=== PATIENT | male | born 1985 | race Caucasian/White ===

== ENCOUNTER 2017-01-25 15:35 | Emergency (ER) | payer BC ==
[2017-01-25] MEDS ORDERED: CEPHALEXIN 500 MG CAPSULE PO ONE (15:49)
[2017-01-25] MEDS ORDERED: DIPH/PERTUSS(ACELL)/TETANUS VAC/PF 0.5 ML SYR (>=10YO) IM ONE (15:49)
--- NOTE | 2017-01-25 15:56 | ER Document Report ---
ED Wound - General Chief Complaint: Laceration Stated Complaint: LEG INJURY Time Seen by Provider: 01/25/17 15:49 Mode of Arrival: Ambulatory Information source: Patient TRAVEL OUTSIDE OF THE [place] IN LAST 30 DAYS: No - HPI Patient complains to provider of: Laceration Occurred: Just prior to arrival Onset/Duration: Sudden Quality of pain: Sharp Severity: Moderate Context: Injury Skin Temperature: Warm Skin Color: Normal Capillary refill: < 3 seconds Sensations intact: Yes Distal pulses present: Yes Associated Symptoms: None Notes: WAS USING CHAIN SAW TO FELL SMALL TREES, SAW "KICKED BACK," LACERATING PATIENT' S LEFT THIGH JUST ABOVE KNEE. - Related Data Allergies/Adverse Reactions: No Known Allergies Allergy (Verified 01/25/17 15:38) Past Medical History - General Information source: Patient - Social History Smoking Status: Never Smoker Cigarette use (# per day): No Chew tobacco use (# tins/day): No Frequency of alcohol use: Occasional Drug Abuse: None Lives with: Spouse/Significant other Family History: Reviewed & Not Pertinent Patient has suicidal ideation: No Patient has homicidal ideation: No - Past Medical History Cardiac Medical History: Reports: None Pulmonary Medical History: Reports: None EENT Medical History: Reports: None Neurological Medical History: Reports: None Endocrine Medical History: Reports: None Renal/ Medical History: Reports: None. Denies: Hx Peritoneal Dialysis Malignancy Medical History: Reports None GI Medical History: Reports: None Musculoskeltal Medical History: Reports None Skin Medical History: Reports None Psychiatric Medical History: Reports: None Past Surgical History: Reports: Hx Tonsillectomy - Immunizations Hx Diphtheria, Pertussis, Tetanus Vaccination: No Review of Systems - Review of Systems Constitutional: No symptoms reported EENT: No symptoms reported Cardiovascular: No symptoms reported Respiratory: No symptoms reported Gastrointestinal: No symptoms reported Genitourinary: No symptoms reported Musculoskeletal: No symptoms reported Skin: See HPI Neurological/Psychological: No symptoms reported Physical Exam - Vital signs Vitals: Temp Pulse Resp BP Pulse Ox 98.7 F 118 H 18 119/78 97 01/25/17 15:38 01/25/17 15:38 01/25/17 15:38 01/25/17 15:38 01/25/17 15:38 Interpretation: Tachycardic - General General appearance: Appears well, Alert In distress: None - HEENT Head: Normocephalic Eyes: Normal Conjunctiva: Normal Ears: Normal Nasal: Normal Mouth/Lips: Normal Mucous membranes: Normal - Respiratory Respiratory status: No respiratory distress - Cardiovascular Rhythm: Regular - Abdominal Inspection: Normal Distension: No distension - Extremities General upper extremity: Normal inspection General lower extremity: No: Normal inspection - L. THIGH (SEE BELOW) - Neurological Neuro grossly intact: Yes Cognition: Normal Orientation: AAOx4 - Psychological Associated symptoms: Normal affect, Normal mood - Skin Skin Temperature: Warm Skin Moisture: Dry Skin Color: Normal Skin Turgor: Elastic Skin irregularity: Laceration - SEE GRAPHIC Course - Vital Signs Vital signs: Temp Pulse Resp BP Pulse Ox 98.7 F 118 H 18 119/78 97 01/25/17 15:38 01/25/17 15:38 01/25/17 15:38 01/25/17 15:38 01/25/17 15:38 Procedures - Laceration/Wound Repair Left Thigh Time completed: 17:15 Wound length (cm): 6.3 Wound's Depth, Shape: Linear. No: Into muscle Laceration pre-procedure: Sterile PPE donned, Betadine prep applied, Sterile drapes applied Anesthetic type: 2% Lidocaine Volume Anesthetic (mLs): 16 Wound explored: No foreign body removed, Contaminated Irrigated w/ Saline (mLs): 80 Wound Debrided: Moderate Wound Repaired With: Sutures Suture Size/Type: 3:0, Nylon Number of Sutures: 10 - 2 SIMPLE, 4 VERT MATTRESS Layer Closure?: No Post-procedure wound care: Sterile dressing applied Post-procedure NV exam normal: Yes Complications: No Adult Front & Back picture: 1 - 6.3 cm LAC., SUTURED Discharge - Discharge Clinical Impression: Laceration Condition: Stable Disposition: HOME, SELF-CARE Instructions: Laceration Care ([facility]), Prophylactic Antibiotic ([facility]), Soap Cleansing ([facility]), Tetanus Immunization Given ([facility]) Additional Instructions: KEEP WOUND CLEAN. TAKE KEFLEX (CEPHALEXIN) DIRECTED. YOU MAY TAKE TYLENOL OR IBUPROFEN FOR PAIN (OR NORCO FOR MORE SEVERE PAIN) IF NEEDED. FOLLOW UP FOR SUTURE REMOVAL IN 14-16 DAYS. RETURN TO E.R. FOR RE-EVALUATION IF PROBLEMS, ANY TIME. Prescriptions: Hydrocodone/Acetaminophen [[place] 5-325 mg Tablet] 1 tab PO Q4HP PRN #10 tablet PRN Reason: For Pain
[2017-01-25] MEDS ORDERED: LIDOCAINE 2% INJ (20 MG/ML) 20 ML MDV INJ ONE (16:09)
[2017-01-25 17:42] VITALS: BP 124/79
== END 2017-01-25 17:38 | disposition home or self-care (01) ==
LOC: ER 15:35
DX: S71.112A Laceration without foreign body, left thigh, initial encounter (principal); W29.3XXA Contact with powered garden and outdoor hand tools and machinery, initial encounter; Y93.H9 Activity, other involving exterior property and land maintenance, building and construction; R00.0 Tachycardia, unspecified
CPT/HCPCS: 99282; 90471; 90715; 12002; J3490